=== PATIENT | female | born 1955 | race Caucasian/White ===

== ENCOUNTER 2022-12-13 16:00 | Inpatient (IN) | payer OTHER, MEDICAID ==
[~2022-12-13] VITALS: Ht 154.9 cm; Wt 69.6 kg
--- NOTE | 2022-12-13 16:03 | NUR ---
Patient to ER bed 03 to gown for evaluation. Side rails up.
[2022-12-13 16:10] VITALS: BP_SYST 150
--- NOTE | 2022-12-13 16:10 | NUR ---
PT BIBA AWAKE AND CONFUSED, AOX1. NO SOB OR DISTRESS. PT DENIES PAIN. PT BROUGHT IN FROM [facility] FOR MISSING TWO DIAYLSIS APPT. PT HAS HX OF ESKD, DM2, EPILPSEY, ANEMIA. [facility] STATED THEY SENT PT HER FOR EMERGENCY DIAYLSIS, BECAUSE HER ORIGINAL CENTER IS CLOSED.
--- NOTE | 2022-12-13 16:11 | NUR ---
MD DR AYALA AT BEDSIDE
[2022-12-13 17:16] LABS: BASOPHILS # (AUTO) 0.1 K/uL (0.0-0.2); BASOPHILS % (AUTO) 1.2 % (0.0-2.0); EOSINOPHILS # (AUTO) 0.3 K/uL (0.0-0.4); EOSINOPHILS % (AUTO) 4.1 % (0.0-4.0); HEMATOCRIT 37.2 % (36-48); HEMOGLOBIN 12.3 g/dL (12.0-16.0); LYMPHOCYTES # (AUTO) 1.5 K/uL (1.0-5.5); LYMPHOCYTES % (AUTO) 22.3 % (20.5-51.5); MEAN CORPUSCULAR HEMOGLOBIN 30 pg (27-31); MEAN CORPUSCULAR HGB CONC 33 % (32-36); MEAN CORPUSCULAR VOLUME 91 fL (79.0-98.0); MONOCYTES # (AUTO) 0.5 K/uL (0.0-1.0); NEUTROPHILS # (AUTO) 4.3 K/uL (1.8-7.7); NEUTROPHILS % (AUTO) 64.4 % (40.0-70.0); PLATELET COUNT (AUTO) 307 K/uL (130-430); RED CELL DISTRIBUTION WIDTH 18.6 % (9.0-15.0); WHITE BLOOD COUNT (AUTO) 6.6 K/uL (4.8-10.8)
[2022-12-13 18:06] LABS: ALANINE AMINOTRANSFERASE 13 U/L (12-78); ALBUMIN 3.5 g/dL (3.4-4.8); ANION GAP 12 (5-15); ASPARTATE AMINOTRANSFERASE 10 U/L (10-37); CALCIUM 9.9 mg/dL (8.4-11.0); CHLORIDE 100 mmol/L (98-107); GFR AFRICAN AMERICAN 6 mL/min (>90); GLUCOSE 201 mg/dL (70-99); TOTAL BILIRUBIN 0.3 mg/dL (0.0-1.0)
[2022-12-13 18:10] LABS: CREATININE 8.66 mg/dL (0.55-1.30)
[2022-12-13 18:29] LABS: UREA NITROGEN, BLOOD 110 mg/dL (8-21)
--- NOTE | 2022-12-13 18:29 | NUR ---
CRITICAL LAB: CREATININE 8.66 NOTIFIED RN AND
--- NOTE | 2022-12-13 18:57 | NUR ---
Admit bed requested Patient will be admitted to care of . Admitted to TELE unit. Diagnosis HYPERKALEMIA UREMIA Inpatient (Yes or No) YES Observation (Yes or No) NO Orientation concerns or request close to nursing station (Yes or No) NO Covid Status NA On vent or bipap NO Isolation requirements NO Needs a sitter NO From Home (Yes or if No enter name of facility) NO [facility] Requires Dialysis (Yes or No) YES Med Rec Completed (Yes of No) YES
[2022-12-13] MEDS ORDERED: INSULIN REGULAR, HUMAN 10 UNITS/0.1 ML, 3 ML VIAL IVP ONE (19:00)
[2022-12-13] MEDS ORDERED: CALCIUM GLUCONATE 1 GM/10 ML VIAL IVP ONE (19:00)
[2022-12-13] MEDS ORDERED: DEXTROSE 50% JECT 50 ML DISP.SYRIN IVP ONE (19:00)
--- NOTE | 2022-12-13 19:14 | NUR ---
REPORT GIVEN TO ROBERTA. PT STABLE
--- NOTE | 2022-12-13 19:30 | NUR ---
Patient is resting comfortably in bed, respirations even and unlabored, and speaking in full sentences. Denied any acute distress at this time.
[2022-12-13] MEDS ORDERED: LORazepam 2 MG/ML VIAL IM PRN (21:45)
[2022-12-13] MEDS ORDERED: LORazepam 2 MG/ML VIAL IM ONE (21:45)
--- NOTE | 2022-12-13 22:35 | NUR ---
Left a message for Tracy Taveras.
--- NOTE | 2022-12-13 22:40 | NUR ---
PICC line insertion consent obtained from Tracy Pughdavidson, daughter.
--- NOTE | 2022-12-13 22:45 | NUR ---
PICC line nurse Colten YOO at bedside for PICC line insertion.
--- NOTE | 2022-12-13 23:12 | NUR ---
Portable x-ray done at bedside.
--- NOTE | 2022-12-13 23:44 | NUR ---
Patient will be admitted to care of DR. MICHELLE. Admitted to TELEMETRY unit. Will go to room 105A. Belongings list completed. Complete and up to date summary report printed. SBAR report to be given at bedside with opportunity for questions.
[2022-12-13] MEDS ORDERED: SODIUM POLYSTYRENE SULFONATE 15 GM/60 ML UDBTL GT ONE (23:45)
[2022-12-14] MEDS ORDERED: LORazepam 2 MG/ML VIAL IVP PRN
[2022-12-14] MEDS ORDERED: DEXTROSE 50% JECT 50 ML DISP.SYRIN IVP PRN
[2022-12-14] MEDS ORDERED: cloNIDine HCL 0.1 MG TABLET PO PRN
[2022-12-14 00:11] VITALS: BP_SYST 153
--- NOTE | 2022-12-14 00:37 | NUR ---
RECEIVED PT FROM ED, NO DISTRESS NOTED, DENIES PAIN. PT ORIENTED TO SELF. O2 SAT 97% ON RA. RT CHEST MILA CATH DRSG CDI. GT CLAMPED. DOUBLE LUMEN PICC LINE TO LUE. USING PURWICK, NO SKIN INJURY NOTED. APPLIED PROPERTY INSURANCE AGENT. Addendum: 12/14/22 at 0745 by [facility], FREDO YOO 0500: GT FEEDING NOT AVAILABLE. WILL ENDORSE
[2022-12-14 05:27] LABS: BASOPHILS # (AUTO) 0.1 K/uL (0.0-0.2); BASOPHILS % (AUTO) 1.1 % (0.0-2.0); EOSINOPHILS # (AUTO) 0.2 K/uL (0.0-0.4); EOSINOPHILS % (AUTO) 2.8 % (0.0-4.0); HEMATOCRIT 36.5 % (36-48); LYMPHOCYTES # (AUTO) 1.5 K/uL (1.0-5.5); MEAN CORPUSCULAR HEMOGLOBIN 30 pg (27-31); MEAN CORPUSCULAR HGB CONC 33 % (32-36); MEAN CORPUSCULAR VOLUME 91 fL (79.0-98.0); MONOCYTES # (AUTO) 0.6 K/uL (0.0-1.0); MONOCYTES % (AUTO) 6.7 % (1.7-9.3); NEUTROPHILS # (AUTO) 6.3 K/uL (1.8-7.7); NEUTROPHILS % (AUTO) 72.4 % (40.0-70.0); PLATELET COUNT (AUTO) 316 K/uL (130-430); RED BLOOD CELL COUNT(AUTO) 4.03 MIL/uL (4.2-6.2); RED CELL DISTRIBUTION WIDTH 18.3 % (9.0-15.0); WHITE BLOOD COUNT (AUTO) 8.8 K/uL (4.8-10.8)
[2022-12-14 06:09] LABS: ALBUMIN 3.2 g/dL (3.4-4.8); CALCIUM 10.1 mg/dL (8.4-11.0); FREE T4 (FREE THYROXINE) 0.9 ng/dl (0.8-1.5); PHOSPHORUS 7.5 mg/dL (2.7-4.5); THYROID STIMULATING HORMONE 3.1 uIu/mL (0.36-3.74); TOTAL BILIRUBIN 0.5 mg/dL (0.0-1.0)
[2022-12-14 07:00] LABS: CREATININE 8.76 mg/dL (0.55-1.30)
--- NOTE | 2022-12-14 07:01 | NUR ---
CONSULTATION PAGED/CALLED Reason for Consultation: [] HYPERKALEMIA Person Who was Notified: [] HEATH Consulting Physician: [] DR LARA Foamite Mixer Specialty: [] DIE HOLDER Ordering Physician: [] DR MICHELLE
[2022-12-14 08:00] VITALS: BP_SYST 139
--- NOTE | 2022-12-14 08:00 | NUR ---
No complaints,continue with plan of care.
[2022-12-14 11:32] VITALS: BP_SYST 150
--- NOTE | 2022-12-14 13:00 | NUR ---
Referral for [place] faxed to [phone] .
--- NOTE | 2022-12-14 13:54 | NUR ---
Technology Director REGIONAL EDUCATION MANAGER faxed Pts. clinicals to [facility]
[2022-12-14 17:18] VITALS: BP_SYST 133
[2022-12-14 19:30] VITALS: BP_SYST 140
--- NOTE | 2022-12-14 19:30 | NUR ---
PM ASSESSMENT; -Pt is a/ox1-2, resting in bed comfortably. No s/s any acute distress noted. Unable to discuss poc d/t cognitive limitation, no family is available at bedside this time. All side rails padded. Seizure precaution in place. All safety measures in place. Fall precaution in place. G-tube feeding Nephro @ 30ml/hr,no residual noted. Keep HOB> 30degree entire time. Call light w/in reach, side rails x3. Cont to monitor pt.
--- NOTE | 2022-12-14 19:31 | NUR ---
tolerating gtube feedings ,no complaints,dialysis completed,continue with plan of care,report given to Yaneli YOO.
--- NOTE | 2022-12-15 01:22 | NUR ---
NOTES; PT REFUSED VITAL SIGNS THIS TIME. -Pt is resting in bed comfortably. Pt denies any chest pain,pain,sob,or any acute distress. No seizure activity noted. Seizure precaution in place. All safety measures in place. Fall precaution in place. G-tube feeding Nephro @ 30ml/hr,no residual noted,flushed with water 100ml, pt tolerated well. Keep HOB> 30degree entire time. Call light w/in reach, side rails x3. Cont to monitor pt.
--- NOTE | 2022-12-15 04:10 | NUR ---
ROUNDS; -Pt is asleep. NO s/s any acute distress noted. All safety measures in place. Call light w/in reach, bed alarmed. Cont to monitor pt.
--- NOTE | 2022-12-15 05:10 | NUR ---
NOTES; -Pt is agitating and attempting to swing arm at nurse when ergonomic specialist asked to draw blood from PICC line. Gave Ativan 1mg IVP for agitation. Will cont to monitor pt.
[2022-12-15] MEDS: INSULIN REGULAR, HUMAN 100 UNITS/ML, 3 ML VIAL (humuLIN R) SUBCUT PRN ×2 (05:45→17:19)
[2022-12-15 06:31] LABS: CALCIUM 9.7 mg/dL (8.4-11.0)
--- NOTE | 2022-12-15 06:32 | NUR ---
CLOSING NOTES; -Pt is resting in bed. NO s/s any acute distress noted. All safety measures in place. No seizure activity noted entire shift. Pt's condition stable. Call light w/in reach, bed alarmed. Will endorse to next nurse to continuity of care.
[2022-12-15 06:37] LABS: CREATININE 7.89 mg/dL (0.55-1.30)
[2022-12-15 06:38] LABS: EOSINOPHILS # (AUTO) 0.2 K/uL (0.0-0.4); EOSINOPHILS % (AUTO) 3.4 % (0.0-4.0); HEMATOCRIT 35.6 % (36-48); HEMOGLOBIN 11.8 g/dL (12.0-16.0); MEAN CORPUSCULAR HEMOGLOBIN 30 pg (27-31); MEAN CORPUSCULAR HGB CONC 33 % (32-36); MEAN CORPUSCULAR VOLUME 91 fL (79.0-98.0); MONOCYTES # (AUTO) 0.6 K/uL (0.0-1.0); MONOCYTES % (AUTO) 9.5 % (1.7-9.3); PLATELET COUNT (AUTO) 288 K/uL (130-430); RED BLOOD CELL COUNT(AUTO) 3.92 MIL/uL (4.2-6.2); RED CELL DISTRIBUTION WIDTH 18.1 % (9.0-15.0); WHITE BLOOD COUNT (AUTO) 6.4 K/uL (4.8-10.8)
--- NOTE | 2022-12-15 07:15 | NUR ---
ENDORSED TO MELDOY YOO TO NOTIFY DR. LARA REGARDING CRTICAL CREATININE 7.89 TRENDING DOWN AND PT IS ESRD AND ON HEMODIALYSIS.
[2022-12-15 07:46] LABS: NEUTROPHILS % (AUTO) 64.5 % (40.0-70.0)
[2022-12-15 07:47] LABS: LYMPHOCYTES # (AUTO) 1.4 K/uL (1.0-5.5); NEUTROPHILS # (AUTO) 4.2 K/uL (1.8-7.7)
--- NOTE | 2022-12-15 09:25 | NUR ---
Tele unit was dc'd and returned to cardiac monitor.
[2022-12-15] MEDS: QUEtiapine FUMARATE 25 MG TABLET PO SCH ×2 (10:19→22:31)
[2022-12-15 11:21] VITALS: BP_SYST 101
[2022-12-15 16:00] VITALS: BP_SYST 138
--- NOTE | 2022-12-15 18:40 | NUR ---
Note Pt resistant to any one doing VS or accu checks all shift. Pt has no HANNAH PICC all shift. GT intact and patent infusing feedings well. Dr Jones was at bedside at 0750am and aware pt resistant to VS and BS checks being done. Pt's son and daughter were at bedside at 1300 and pt asking for food, family brought in food and fed pt, tolerated diet well. Pt's son ambulated pt to restroom to void, family assisted pt back to bed. Pt was checked on q1' and PRN all shift for needs and care. Pt was maintained with safety precautions all shift. Pt next to nurses' station for close observation for needs and care. Pt has seizure pads on bed, pt tends to throw seizure pads on the floor from time to time. Call light within reach.
--- NOTE | 2022-12-15 19:30 | NUR ---
Received pt in bed. Pt awake and alert not not cooperative with v/s. No iv access since day shift. Left chest HD perma catheter Intact. Gt feeding with Nephro at 30 ml/hr. Seizure and aspiration precaution. Kept HOB elevated at least 30 deg. Refused IV insertion.
[2022-12-15 20:26] VITALS: BP_SYST 133
[2022-12-16 00:18] VITALS: BP_SYST 98
--- NOTE | 2022-12-16 05:58 | NUR ---
pt awake and oriented x self/place. Pt more cooperative this am-let us to check BS and draw am Lab. No urine out put and bm. Provided pudding per pt's request. No s/sx of aspiration. Skin dry and intact. BS-188. Tolerated GT feeding with Nephro at 30 ml and given H2O flush 100 ml every 8 hr. No residual.
[2022-12-16 07:00] VITALS: BP_SYST 125
[2022-12-16 07:03] LABS: BASOPHILS # (AUTO) 0.1 K/uL (0.0-0.2); BASOPHILS % (AUTO) 1.4 % (0.0-2.0); EOSINOPHILS # (AUTO) 0.2 K/uL (0.0-0.4); EOSINOPHILS % (AUTO) 3.5 % (0.0-4.0); HEMATOCRIT 35.4 % (36-48); HEMOGLOBIN 11.8 g/dL (12.0-16.0); LYMPHOCYTES # (AUTO) 1.8 K/uL (1.0-5.5); LYMPHOCYTES % (AUTO) 28.6 % (20.5-51.5); MEAN CORPUSCULAR HEMOGLOBIN 30 pg (27-31); MEAN CORPUSCULAR HGB CONC 33 % (32-36); MEAN CORPUSCULAR VOLUME 91 fL (79.0-98.0); MONOCYTES # (AUTO) 0.7 K/uL (0.0-1.0); MONOCYTES % (AUTO) 11.1 % (1.7-9.3); NEUTROPHILS # (AUTO) 3.6 K/uL (1.8-7.7); NEUTROPHILS % (AUTO) 55.4 % (40.0-70.0); PLATELET COUNT (AUTO) 249 K/uL (130-430); RED BLOOD CELL COUNT(AUTO) 3.89 MIL/uL (4.2-6.2); RED CELL DISTRIBUTION WIDTH 18.1 % (9.0-15.0); WHITE BLOOD COUNT (AUTO) 6.4 K/uL (4.8-10.8)
[2022-12-16 07:35] LABS: CREATININE 9.23 mg/dL (0.55-1.30)
[2022-12-16] MEDS: QUEtiapine FUMARATE 25 MG TABLET PO SCH ×2 (08:13→20:59)
[2022-12-16 12:00] VITALS: BP_SYST 117
--- NOTE | 2022-12-16 14:51 | NUR ---
Dietitian Recommendations * Increase Nepro @ 35 mL/hr (goal rate) via GT: - Provides: 1512 kcals, 68 g PRO, and 911 mL of total volume. - Meets: 95% of lower est. kcal needs and 106% of lower est. PRO needs. * Defer est. fluid needs to MD d/t ESRD on HD. * Consider ST swal. eval. for safety of possible diet advancement. Submitted for FABIO Jett by Marii De Leon, MPH, RD Please refer to RD Assessment for further details. Thanks!
[2022-12-16 16:12] VITALS: BP_SYST 121
[2022-12-16] MEDS: INSULIN REGULAR, HUMAN 100 UNITS/ML, 3 ML VIAL (humuLIN R) SUBCUT PRN (18:08)
--- NOTE | 2022-12-16 19:45 | NUR ---
REFUSING IV insertion DR MIGUEL ANGEL ALONZO is aware
--- NOTE | 2022-12-16 20:02 | NUR ---
Patient non compliant with some of care more receptive to interventions after dialysis. Not quite as refused. Plan of care to continue with monitoring labs HD psycho social.
--- NOTE | 2022-12-16 20:11 | NUR ---
Patient not as confused after dialysis but still would not allow new IV to be placed. Attempted several times with out success. Plan will continue to offer hoping patient may be compliant
--- NOTE | 2022-12-16 20:44 | NUR ---
HEMODIALYSIS orders printed and given to production supervisor HD , for AM .
[2022-12-16 21:00] VITALS: BP_SYST 135
--- NOTE | 2022-12-16 22:35 | NUR ---
Patient awake alert assist out of bed to BSC FALL RISK MEASURES implemented no SOB noted 02 SAT 96 %
--- NOTE | 2022-12-16 23:44 | NUR ---
HOURLY ROUNDING patient awake is verbally responsive call gill given to PT bed alarm is ON .
[2022-12-17 00:13] VITALS: BP_SYST 98
--- NOTE | 2022-12-17 01:35 | NUR ---
Hourly Rounding patient awake on and off assist for BSC back to bed tolerated BED ALARM / ON .
[2022-12-17 06:00] LABS: CALCIUM 9.9 mg/dL (8.4-11.0); CREATININE 7.42 mg/dL (0.55-1.30)
[2022-12-17] MEDS: QUEtiapine FUMARATE 25 MG TABLET PO SCH (09:24)
--- NOTE | 2022-12-17 11:15 | NUR ---
CM met with patient at bedside. receiving dialysis at this time. Patient is ok to go back to [facility]. patient verbalized that she just wants to be with her family.
[2022-12-17 11:32] VITALS: BP_SYST 123
--- NOTE | 2022-12-17 11:45 | NUR ---
Mud Analysis Well Logging Operator re: social service manager referral Telephone call made to the patient's daughter, Tracy, to discuss the ongoing issues regarding the patient's noncompliance with dialysis. Per Tracy, the patient has been residing at [facility] for the last 4 and a 1/2 months. The patient Was previously residing with her son in a local motel. According to the daughter, the patient wants to have dialysis in house and does not want to go outpatient for dialysis services. She states the patient will attend dialysis on Saturdays when her or the son are at bedside, however in the , she will not attend. She states recently, both and nurses have spoken to them [her and the son] about hospice services, however the son is not in agreement to hospice services. The daughter is aware that the patient frequently refuses hospice services, which is why the has discussed hospice services with her. I advised the daughter that the patient is ready to discharge from the hospital and return back to [facility] once the patient is cleared by nephrology. The daughter is in agreement with the patient returning back to [facility]. I advised her that I would reach out to [facility] to get the patient transferred back. I did call the son, Atilio, to discuss the patient with his as well, however there was no answer. His voicemail is full. Per daughter, the son's voicemail is full and he is unable to receive calls in the day. Telephone call made to Norma at [facility]. I advised her that the patient is ready to return back and a bed is needed. A clinical packet has been sent over, which she advised she would review and reply back with the bed assignment. Upon receiving the bed assignment for the patient, [facility] will be arranged. [facility]: [phone] [facility]: [phone]
--- NOTE | 2022-12-17 12:01 | NUR ---
PATIENT UNABLE TO PARTICIPATE IN PT TREATMENT TODAY D/T RECEIVING HD. WILL TRY AGAIN TOMORROW.
--- NOTE | 2022-12-17 12:27 | NUR ---
paged dr aranda for dc order as per hospice case manager
--- NOTE | 2022-12-17 12:30 | NUR ---
DIALYSIS CATHETER OCCLUDED ORDER FOR ACTIVASE OBTAINED FROM DR. ACEVEDO,
--- NOTE | 2022-12-17 12:40 | NUR ---
CM received notification from credit charge authorizer that patient HD catheter malfunction and will need TPA. Angeli from [facility] updated. updated clinicals were sent to [facility]
--- NOTE | 2022-12-17 12:46 | NUR ---
BLOOD SUGAR 163, PATIENT REFUSING INSULIN A THIS TIME
[2022-12-17] MEDS ORDERED: ALTEPLASE 2 MG VIAL MC ONE (13:00)
--- NOTE | 2022-12-17 13:41 | NUR ---
Per Kelly YOO CM, the patient's dialysis treatment at bedside has a delay, therefor dialysis has not been completed at this time. Received call from Norma at [facility]. The patient will return back to [facility] and will go to room 211. Norma advised of delay. [facility] called and arranged for a p/u tonight at 9p, assuming the patient is able to discharge today. [facility] does not do will-call for transports. Per Norma, [facility] has a RN on duty and is able to accept the patient at that hour. Transportation arranged with C[facility]. FREDO Leija advised of the discharge arrangements for the patient, but also advised that should the patient not be able to discharge tonight, then transport should be called and canceled. The clinical packet taken to the unit for transport. [facility]: [phone] [facility]: [phone] Transportation confirmation #: [id number]
[2022-12-17 16:32] VITALS: BP_SYST 126
--- NOTE | 2022-12-17 16:49 | NUR ---
CM received phone call from charge auditor that Dr Hansen [facility] will notify SNF. transportation in place.
--- NOTE | 2022-12-17 16:54 | NUR ---
Dialysis confirmation made with [facility] in [place]. Per lorna, the patient is on schedule for T,Th, S from 9:30a - 1:30p. I advised Lita that the patient has been at [facility] and will discharge tonight returning back to [facility]. Per Lita, they will expect to see the patient tomorrow. Telephone call made to [facility] to resume transportation. The patient has transportation arranged for a p/u tomorrow at 8:40a from to . [facility]: [phone] [facility]: [phone] confirmation #: [id number]
--- NOTE | 2022-12-17 19:45 | NUR ---
opening note Received SBAR report from, Liss YOO. She endorsed that patient will discharge and ambulance is here waiting for her to give report. She has not been able to call report to [facility]. Liss gave report to the EMT ([facility]) and to me simultaneously. Patient resting in bed, sitting up. No distress and nonlabored breathing on room air, GT feeding is running, she has no IV access. HD access is on Left chest. Safety precautions in place.
--- NOTE | 2022-12-17 20:11 | NUR ---
Report to [facility] Called endorsed report to Karyn R/NKatherine ([phone]). Discharge info not complete will work on MST instructions and inventory.
[2022-12-17 20:13] VITALS: BP_SYST 130
--- NOTE | 2022-12-17 20:15 | NUR ---
notified daughter / transfer called and s/w daughter Tracy Pughdarlynmagdy; informed mother is transferrin to [facility] and ambulance is here to take her.
--- NOTE | 2022-12-17 20:19 | NUR ---
completed/printed discharge instructions
--- NOTE | 2022-12-17 20:20 | NUR ---
PT TRANSFERRED Report given to Karyn at [facility]. Transfer packet with Transfer Orders and Medication Reconciliation form given to JEANNE Gongora ([facility] ambulance). Exitcare provided. [facility] ID band removed, replaced plain ID band with pt's name and . GT feeding was clamped. She did not have IV access. She did not have belongings. Patient left floor via gurney escorted by EMT in no distress.
--- NOTE | 2022-12-17 20:45 | NUR ---
opening note Received SBAR report from, Liss YOO. She endorsed that patient will discharge and ambulance is here waiting for her to give report. She has not been able to call report to [facility]. Liss gave report to the EMT ([facility]) and to me simultaneously. Patient resting in bed, sitting up. No distress and nonlabored breathing on room air, GT feeding is running, she has no IV access. HD access is on Left chest. Safety precautions in place. Addendum: 12/18/22 at 0131 by Tania Liao RN incorrect time
== END 2022-12-17 20:10 | DRG 682 ==
LOC: SED 16:00 → STU 18:50 → SMU 12-15 08:10
PROVIDERS: ADMIT Internal Medicine; ATTEND Internal Medicine
PROC: 5A1D70Z Performance of Urinary Filtration, Intermittent, Less than 6 Hours Per Day (ICD-10-PCS; principal; 2022-12-14)
PROC: 5A1D70Z Performance of Urinary Filtration, Intermittent, Less than 6 Hours Per Day (ICD-10-PCS; 2022-12-15)
PROC: 5A1D70Z Performance of Urinary Filtration, Intermittent, Less than 6 Hours Per Day (ICD-10-PCS; 2022-12-16)
PROC: 5A1D70Z Performance of Urinary Filtration, Intermittent, Less than 6 Hours Per Day (ICD-10-PCS; 2022-12-17)
DX: I12.0 Hypertensive chronic kidney disease with stage 5 chronic kidney disease or end stage renal disease (principal); G93.41 Metabolic encephalopathy; N18.6 End stage renal disease; E44.1 Mild protein-calorie malnutrition; F03.918 Unspecified dementia, unspecified severity, with other behavioral disturbance; E87.5 Hyperkalemia; G40.909 Epilepsy, unspecified, not intractable, without status epilepticus; R13.10 Dysphagia, unspecified; Z93.1 Gastrostomy status; Z68.29 Body mass index [BMI] 29.0-29.9, adult
CPT/HCPCS: 36415; 70450-TC; 71045; 76376; 80048; 80053; 82009; 83037; 83605; 84100; 84439; 84443; 84484; 85025; 85610-TC; 85730-TC; 90935; 90937; 93005; 97110-GP; 97112-GP; 97116-GP; 97530-GP; 99291; G0378; J0610; J1815; J2060; J2997

== ENCOUNTER 2023-01-10 20:42 | Inpatient (IN) | payer OTHER, MEDICAID ==
[~2023-01-10] VITALS: Ht 157.5 cm; Wt 73.5 kg
--- NOTE | 2023-01-10 20:45 | NUR ---
PATIENT BIBA FROM [facility] FOR MALFUNCTION OF AV SHUNT AWAITING FOR EDP FOR INITIAL ASSESSMENT. PATIENT IN ROOM 2 ON CARDIC MONITOR, WILL CONTINUE TO MONITOR.
[2023-01-10 20:47] VITALS: BP_SYST 152
--- NOTE | 2023-01-10 21:14 | NUR ---
X-RAY IN PROGRESS.
--- NOTE | 2023-01-10 21:28 | NUR ---
PATIENT ASSISTED TO BEDPAN, REMAIS IN BED ON FASHION STYLING INTERN, WILL CONTINUE TO MONITOR.
[2023-01-10 21:48] LABS: BASOPHILS % (AUTO) 0.6 % (0.0-2.0); EOSINOPHILS # (AUTO) 0.2 K/uL (0.0-0.4); EOSINOPHILS % (AUTO) 3.4 % (0.0-4.0); HEMATOCRIT 34.1 % (36-48); HEMOGLOBIN 11.3 g/dL (12.0-16.0); LYMPHOCYTES # (AUTO) 1.8 K/uL (1.0-5.5); LYMPHOCYTES % (AUTO) 29.7 % (20.5-51.5); MEAN CORPUSCULAR HEMOGLOBIN 31 pg (27-31); MEAN CORPUSCULAR HGB CONC 33 % (32-36); MEAN CORPUSCULAR VOLUME 94 fL (79.0-98.0); MONOCYTES # (AUTO) 0.6 K/uL (0.0-1.0); MONOCYTES % (AUTO) 9.2 % (1.7-9.3); NEUTROPHILS # (AUTO) 3.5 K/uL (1.8-7.7); NEUTROPHILS % (AUTO) 57.1 % (40.0-70.0); PLATELET COUNT (AUTO) 233 K/uL (130-430); RED BLOOD CELL COUNT(AUTO) 3.62 MIL/uL (4.2-6.2); RED CELL DISTRIBUTION WIDTH 17.2 % (9.0-15.0); WHITE BLOOD COUNT (AUTO) 6.1 K/uL (4.8-10.8)
[2023-01-10 22:08] LABS: ALBUMIN 3.4 g/dL (3.4-4.8); CALCIUM 8.9 mg/dL (8.4-11.0); TOTAL BILIRUBIN 0.3 mg/dL (0.0-1.0)
[2023-01-10 22:21] LABS: CREATININE 10.06 mg/dL (0.55-1.30)
[2023-01-10] MEDS ORDERED: INSULIN REGULAR, HUMAN 10 UNITS/0.1 ML, 3 ML VIAL IVP ONE (22:45)
[2023-01-10] MEDS ORDERED: ALBUTEROL SULFATE 0.083% 2.5 MG/3 ML VIAL.NEB INH ONE (22:45)
[2023-01-10] MEDS ORDERED: CALCIUM CHLORIDE 1 GM in NS 100 ML IV ONE (22:45)
[2023-01-10] MEDS ORDERED: SODIUM POLYSTYRENE SULFONATE 15 GM/60 ML UDBTL PO ONE (22:45)
[2023-01-10] MEDS ORDERED: DEXTROSE 50% JECT 50 ML DISP.SYRIN IVP ONE (22:45)
--- NOTE | 2023-01-10 22:46 | NUR ---
Admit bed requested Patient will be admitted to care of . Admitted to TELEMETRY unit. Diagnosis ACUTE RENAL FAILURE Inpatient (Yes or No) Y Observation (Yes or No) N Orientation concerns or request close to nursing station (Yes or No) Y Covid Status N/A On vent or bipap N Isolation requirements N Needs a sitter N From Home (Yes or if No enter name of facility) [facility] Requires Dialysis (Yes or No) Y Med Rec Completed (Yes of YY
[2023-01-10] MEDS ORDERED: IPRATROPIUM/ALBUTEROL SULFATE 3 ML AMPUL.NEB (DUONEB) INH PRN (23:00)
[2023-01-10] MEDS ORDERED: ZOLPIDEM TARTRATE 5 MG TABLET PO PRN (23:00)
[2023-01-10] MEDS ORDERED: POTASSIUM CHLORIDE 20 MEQ TAB.PRT.SR PO PRN (23:00)
[2023-01-10] MEDS ORDERED: MUPIROCIN 2% TOPICAL OINTMENT 22 GM NS PRN (23:00)
[2023-01-10] MEDS ORDERED: MORPHINE 2 MG/ML INJ. SYRINGE IVP PRN ×2 (23:00)
[2023-01-10] MEDS ORDERED: NALOXONE HCL 0.4 MG/ML AMP (NARCAN) IVP PRN ×2 (23:00)
[2023-01-10] MEDS ORDERED: ONDANSETRON HCL 4 MG/2 ML VIAL IVP PRN (23:00)
[2023-01-10] MEDS ORDERED: ACETAMINOPHEN 325 MG TABLET PO PRN (23:00)
[2023-01-10] MEDS ORDERED: LORazepam 2 MG/ML VIAL IVP PRN (23:00)
[2023-01-10] MEDS ORDERED: DOCUSATE SODIUM 100 MG CAPSULE PO PRN (23:00)
[2023-01-10] MEDS ORDERED: MAGNESIUM SULFATE 50 ML IV PRN (23:00)
--- NOTE | 2023-01-10 23:04 | NUR ---
FAMILY AT BEDSIDE, PATIENT IS NOT COORPERATIVE.
[2023-01-10] MEDS ORDERED: CALCIUM CHLORIDE 1 GM/10 ML DISP.SYRIN (14 mEq Ca++/SYR) ONE (23:36)
[2023-01-11] VITALS (7 sets, daily range): BP systolic 136–169
--- NOTE | 2023-01-11 00:13 | NUR ---
Patient will be admitted to care of [facility]. Admitted to tele unit. Will go to room 111 A. Belongings list completed. Complete and up to date summary report printed. SBAR report to be given at bedside with opportunity for questions.
--- NOTE | 2023-01-11 00:19 | NUR ---
REPORT GIVEN TO TINA GARRIDO.
--- NOTE | 2023-01-11 02:53 | NUR ---
NOTES; CALLED [facility] AND SPOKE WITH CHARLEE NURSE REGARDING TYPE OF G-TUBE FEEDING AND RATE THAT PT IS GETTING. SHE STATED, " PT IS ON NEPHRO 1.8 @ 35ML/HR MOST RECENTLY BECAUSE G-TUBE FEEDING STOPPED 2 WKS AGO AND SHE EATS ORALLY. PT WAS VACCINATED WITH INFLUENZA AND COVID IMMUNIZATIONS.
--- NOTE | 2023-01-11 04:00 | NUR ---
NOTES; PT REFUSED G-TUBE FEEDING NEPHRO 1.8 -Pt stated, "Oh no! Yucky, I don't want the mush!" Pt stated that she eats by mouth. will notify md regarding if pt can eat orally.
--- NOTE | 2023-01-11 05:23 | NUR ---
CONSULTATION PAGED REASON FOR CONSULTATION: DIALYSIS ACCESS PLACEMENT WAS CONSULT CALLED? Y PERSON WHO WAS NOTIFIED: CONSULTING PHYSICIAN: NICOLE BRAND MARKETING MANAGER SPECIALTY: MIXER HELPER PHONE NUMBER: [phone] REQUESTING PHYSICIAN: Sandy LA
--- NOTE | 2023-01-11 05:24 | NUR ---
CONSULTATION PAGED REASON FOR CONSULTATION: ESRD WAS CONSULT CALLED? Y PERSON WHO WAS NOTIFIED: LIZETTE CONSULTING PHYSICIAN: DR. CALVIN PICKETT COVERING YARN REWINDER SPECIALTY: NEPHRO YARN REWINDER PHONE NUMBER: [phone] REQUESTING PHYSICIAN: Sandy LA
--- NOTE | 2023-01-11 05:26 | NUR ---
NOTES; Pablo MARRERO CALLED AND ASKED WHAT TYPE OF HEMODIALYSIS WAS MALFXN. INFORMED HIM THAT IT IS LEFT TUNNEL SUBCLAVIAN CATHETER HEMODIALYSIS. STATED," OKAY." NO FURTHER ORDER.
[2023-01-11 05:40] LABS: BASOPHILS # (AUTO) 0.1 K/uL (0.0-0.2); EOSINOPHILS # (AUTO) 0.1 K/uL (0.0-0.4); EOSINOPHILS % (AUTO) 0.8 % (0.0-4.0); HEMATOCRIT 33.1 % (36-48); HEMOGLOBIN 10.8 g/dL (12.0-16.0); LYMPHOCYTES # (AUTO) 1.1 K/uL (1.0-5.5); MEAN CORPUSCULAR HEMOGLOBIN 31 pg (27-31); MEAN CORPUSCULAR HGB CONC 33 % (32-36); MEAN CORPUSCULAR VOLUME 94 fL (79.0-98.0); MONOCYTES # (AUTO) 0.5 K/uL (0.0-1.0); MONOCYTES % (AUTO) 7.3 % (1.7-9.3); NEUTROPHILS % (AUTO) 73.9 % (40.0-70.0); PLATELET COUNT (AUTO) 209 K/uL (130-430); RED BLOOD CELL COUNT(AUTO) 3.53 MIL/uL (4.2-6.2); RED CELL DISTRIBUTION WIDTH 17.3 % (9.0-15.0); WHITE BLOOD COUNT (AUTO) 6.7 K/uL (4.8-10.8)
[2023-01-11] MEDS: INSULIN REGULAR, HUMAN 100 UNITS/ML, 3 ML VIAL (humuLIN R) SUBCUT PRN ×2 (06:00→20:44)
[2023-01-11 06:26] LABS: CALCIUM 9.1 mg/dL (8.4-11.0)
--- NOTE | 2023-01-11 06:26 | NUR ---
CLOSING NOTES; -Pt is resting in bed comfortably. NO s/s any acute distress noted. Pt's condition stable. will endorse to next nurse to continuity of care.
[2023-01-11 06:29] LABS: CREATININE 10.41 mg/dL (0.55-1.30)
--- NOTE | 2023-01-11 06:40 | NUR ---
NOTES; CALLED Clarice HAAS REGARDING CRITICAL LAB ( IVZ=996 AND CREATININE=10.41) AND TO ASK FOR DIET PO, PT REFUSED G-TUBE FEEDING. WAITING FOR MD TO RETURN CALLBACK.
--- NOTE | 2023-01-11 07:03 | NUR ---
NOTES; DR. LARA INFORMED AND AWARE REGARDING CRITICAL LAB CHS=569 AND CREATINE=10.41, INFORMED MD THAT LEFT TUNNEL CATHETER OF SUBCLAVIAN MALFXN. STATED," I WILL HEMODIALYSIS NURSE TO DIALYSIS PATIENT."
--- NOTE | 2023-01-11 07:07 | NUR ---
NOTES; NOTIFIED DR. LA REGARDING CRITICAL LAB HGI=512 AND CREATINE=10.41, AND DR. LARA WAS INFORMED ALREADY AT NURSES' STATION AND TOLD DR. LA THAT DR. LARA WAS AWARED OF LEFT TUNNEL CATHETER OF SUBCLAVIAN MALFXN AND HE WILL ASK HEMODIALYSIS NURSE TO DIALYZIS PATIENT."
--- NOTE | 2023-01-11 07:30 | NUR ---
MORNING ROUNDS: PATIENT RESTING DURING ROUNDS. CALL LIGHT WITH IN REACH. BED LOCKED AT LOWEST POSITION. LEFT SUBCLAVIAN HD ACCESS,DRESSING CLEAN AND DRY.SAFETY MEASURES OBSERVED.NO ACUTE DISTRESS.
[2023-01-11] MEDS ORDERED: METOPROLOL TARTRATE 25 MG TABLET PO ONE (09:45)
[2023-01-11] MEDS ORDERED: ALTEPLASE 2 MG VIAL MC ONE ×2 (09:45→15:00)
[2023-01-11] MEDS ORDERED: ACET325T PO (11:37)
[2023-01-11] MEDS ORDERED: GLUC1VIA14 IM (11:37)
[2023-01-11] MEDS ORDERED: SER25 PO (11:37)
[2023-01-11] MEDS ORDERED: CLON0.1T PO (11:37)
[2023-01-11] MEDS ORDERED: INSU100V7 SUBCUT (11:37)
[2023-01-11] MEDS ORDERED: DEXT50DI5 IV (11:37)
--- NOTE | 2023-01-11 12:14 | NUR ---
BLOOD SUGAR REFUSED: PATIENT REFUSED BLOOD SUGAR TAKEN.
--- NOTE | 2023-01-11 13:09 | NUR ---
Surgeon Called: Spoke with Dr. Rose ,will not be available to do the hd access from today till Saturday. Will inform Md if the tunnel will not work after cath flow activase was put in thru the tunnel by dialysis nurse today.
--- NOTE | 2023-01-11 13:58 | NUR ---
CONSULTATION PAGED/CALLED Reason for Consultation: [] PSYCHOSIS Person Who was Notified: [] DADA ( [facility]) Consulting Physician: [] MARILU LARA Environmental Technical Officer Specialty: [] PSYCH Ordering Physician: [] DR LA
--- NOTE | 2023-01-11 14:00 | NUR ---
HEMODIALYSIS: HEMODIALYSIS STARTED. CATH FLOW GIVEN THRU THE HD ACCESS BY JAYADIALYSIS NURSE.
--- NOTE | 2023-01-11 16:30 | NUR ---
BLOOD SUGAR: BLOOD SUGAR CHECKED. NO INSULIN COVERAGE GIVEN PER SLIDING SCALE.
--- NOTE | 2023-01-11 17:00 | NUR ---
HD DONE: HD DONE 2 LITERS OUT. CATH FLOW GIVEN THRU HER ACCESS AFTER BY DIALYSIS NURSE JESSIE.
--- NOTE | 2023-01-11 19:00 | NUR ---
END OF SHIFT: ENDORSED TO NIGHT NURSE ,PATIENT IN STABLE CONDITION. LEFT SUBCLAVIAN HD ACCESS WORKING.
--- NOTE | 2023-01-11 19:40 | NUR ---
PM ASSESSMENT; -Patient is awake, alert, oriented x1,resting in bed. Pt is uncooperative and noncompliance. NO s/s any acute distress noted. PEG tube clamped. Side rails x3,bed alarmed. Fall precaution in place. Bed alarmed. BSC with assistance. Call light within reach. Cont to monitor pt.
[2023-01-11] MEDS: METOPROLOL TARTRATE 25 MG TABLET PO SCH (20:41)
--- NOTE | 2023-01-11 22:47 | NUR ---
ROUNDS; -Pt is asleep. NO s/s any acute distress noted. All safety measures in place. call light w/in reach. cont to monitor pt.
[2023-01-12 00:56] VITALS: BP_SYST 135
--- NOTE | 2023-01-12 03:26 | NUR ---
ROUNDS; -Pt is asleep. NO s/s any acute distress noted. Pt's condition stable. A monitor shows SB 48-49 bpm. All safety measures in place. call light w/in reach. cont to monitor pt.
--- NOTE | 2023-01-12 05:56 | NUR ---
NOTES; BLOOD BUVCA=062, NO SSI COVERAGE.
--- NOTE | 2023-01-12 06:31 | NUR ---
CLOSING NOTES; -Pt is resting in bed comfortably. NO s/s any acute distress noted. Pt's condition stable. will endorse to next nurse to continuity of care.
[2023-01-12 07:30] VITALS: BP_SYST 128
[2023-01-12 08:18] LABS: BASOPHILS # (AUTO) 0.1 K/uL (0.0-0.2); BASOPHILS % (AUTO) 1.2 % (0.0-2.0); EOSINOPHILS # (AUTO) 0.2 K/uL (0.0-0.4); EOSINOPHILS % (AUTO) 4.4 % (0.0-4.0); HEMOGLOBIN 11.6 g/dL (12.0-16.0); LYMPHOCYTES # (AUTO) 1.4 K/uL (1.0-5.5); LYMPHOCYTES % (AUTO) 29.2 % (20.5-51.5); MEAN CORPUSCULAR HEMOGLOBIN 31 pg (27-31); MEAN CORPUSCULAR HGB CONC 33 % (32-36); MEAN CORPUSCULAR VOLUME 93 fL (79.0-98.0); MONOCYTES # (AUTO) 0.5 K/uL (0.0-1.0); MONOCYTES % (AUTO) 9.6 % (1.7-9.3); NEUTROPHILS # (AUTO) 2.7 K/uL (1.8-7.7); NEUTROPHILS % (AUTO) 55.6 % (40.0-70.0); PLATELET COUNT (AUTO) 214 K/uL (130-430); RED BLOOD CELL COUNT(AUTO) 3.75 MIL/uL (4.2-6.2); WHITE BLOOD COUNT (AUTO) 4.9 K/uL (4.8-10.8)
[2023-01-12 08:29] LABS: CALCIUM 8.7 mg/dL (8.4-11.0); CREATININE 6.14 mg/dL (0.55-1.30)
[2023-01-12] MEDS: METOPROLOL TARTRATE 25 MG TABLET PO SCH ×2 (09:00→21:21)
[2023-01-12 11:19] VITALS: BP_SYST 131
[2023-01-12 15:16] VITALS: BP_SYST 146
[2023-01-12 16:00] VITALS: BP_SYST 136
[2023-01-12 20:00] VITALS: BP_SYST 155
[2023-01-13] VITALS: BP_SYST 172
[2023-01-13] MEDS: cloNIDine HCL 0.1 MG TABLET PO PRN ×2 (00:09→16:37)
--- NOTE | 2023-01-13 06:40 | NUR ---
Closing notes Pt awake, lab draw at bedside. BS checked 121. L. subclavian HD catheter dressing C/D/I. Call light within reach. Bed low, locked, siderail up x2. Seizure precaution. To endorse to AM nurse.
[2023-01-13 07:03] LABS: BASOPHILS # (AUTO) 0.1 K/uL (0.0-0.2); BASOPHILS % (AUTO) 1.3 % (0.0-2.0); EOSINOPHILS # (AUTO) 0.3 K/uL (0.0-0.4); EOSINOPHILS % (AUTO) 4.8 % (0.0-4.0); HEMATOCRIT 33.4 % (36-48); LYMPHOCYTES % (AUTO) 31.3 % (20.5-51.5); MEAN CORPUSCULAR HEMOGLOBIN 31 pg (27-31); MEAN CORPUSCULAR HGB CONC 33 % (32-36); MEAN CORPUSCULAR VOLUME 94 fL (79.0-98.0); MONOCYTES # (AUTO) 0.6 K/uL (0.0-1.0); NEUTROPHILS # (AUTO) 3.4 K/uL (1.8-7.7); NEUTROPHILS % (AUTO) 53.6 % (40.0-70.0); PLATELET COUNT (AUTO) 201 K/uL (130-430); RED BLOOD CELL COUNT(AUTO) 3.54 MIL/uL (4.2-6.2); RED CELL DISTRIBUTION WIDTH 16.6 % (9.0-15.0); WHITE BLOOD COUNT (AUTO) 6.4 K/uL (4.8-10.8)
--- NOTE | 2023-01-13 07:05 | NUR ---
OPENING NOTES PATIENT EATING BREAKFAST. BREATHING UNLABORED ON RA SA02 100%. NO PAIN, NO DISTRESS, NO SOB REPORTED. EDUCATE PATIENT TO USE CALL LIGHT. CALL LIGHT PLACED WITHIN REACH. BED LOCKED IN LOWEST POSITION. PROVIDE COMFORT MEASURES. SAFETY PRECAUTIONS IN PLACE. WILL CONTINUE WITH PLAN OF CARE.
[2023-01-13 07:26] LABS: CALCIUM 9.2 mg/dL (8.4-11.0); CREATININE 7.5 mg/dL (0.55-1.30)
[2023-01-13 07:58] VITALS: BP_SYST 188
[2023-01-13] MEDS: METOPROLOL TARTRATE 25 MG TABLET PO SCH ×2 (08:46→21:00)
[2023-01-13 11:27] VITALS: BP_SYST 142
--- NOTE | 2023-01-13 11:38 | NUR ---
MADE ANOTHER TRY TO CALL TELEPSYCH WITH MARILU LARA WAS DONE. CONNECTION WAS SUCCESSFUL AND DR YEE MICHEL IS TALKING TO THE PATIENT NOW.
--- NOTE | 2023-01-13 12:05 | NUR ---
ROUNDING NOTES PATIENT EATING LUNCH, BREATHING UNLABORED ON RA. NO PAIN, NO DISTRESS, NO SOB NOTED. ALL NEED MET AT THIS TIME. BED ALARM WITHIN REACH. BED IS LOCKED IN LOWEST POSITION. WILL CONTINUE WITH PLAN OF CARE.
[2023-01-13 15:32] VITALS: BP_SYST 174
--- NOTE | 2023-01-13 16:49 | NUR ---
ROUNDING NOTES PATIENT RESTING, BREATHING UNLABORED ON RA. NO PAIN, NO DISTRESS, NO SOB NOTED. ALL NEED MET AT THIS TIME. BED ALARM WITHIN REACH. BED IS LOCKED IN LOWEST POSITION. WILL CONTINUE WITH PLAN OF CARE.
--- NOTE | 2023-01-13 18:44 | NUR ---
CLOSING NOTES PATIENT RESTING, BREATHING UNLABORED ON RA. NO PAIN, NO DISTRESS, NO SOB NOTED. ALL NEED MET AT THIS TIME. BED ALARM WITHIN REACH. BED IS LOCKED IN LOWEST POSITION. WILL ENDORSE TO WEB SITE DEVELOPER NURSE.
[2023-01-13 20:10] VITALS: BP_SYST 138
--- NOTE | 2023-01-13 20:10 | NUR ---
Opening notes Pt asleep, easily awakens, VSS. No s/s distress noted. L. subclavian chey cath dressing C/D/I. GT clamped. Pt refused R. FA to be flushed. Call light within reach. Bed low, locked, siderails up x2. To monitor.
[2023-01-13] MEDS: INSULIN REGULAR, HUMAN 100 UNITS/ML, 3 ML VIAL (humuLIN R) SUBCUT PRN (21:17)
[2023-01-14 00:51] VITALS: BP_SYST 114
[2023-01-14 07:24] LABS: BASOPHILS # (AUTO) 0.1 K/uL (0.0-0.2); BASOPHILS % (AUTO) 1.1 % (0.0-2.0); EOSINOPHILS # (AUTO) 0.3 K/uL (0.0-0.4); EOSINOPHILS % (AUTO) 4.5 % (0.0-4.0); HEMATOCRIT 35.2 % (36-48); HEMOGLOBIN 11.5 g/dL (12.0-16.0); LYMPHOCYTES # (AUTO) 2.3 K/uL (1.0-5.5); LYMPHOCYTES % (AUTO) 30.4 % (20.5-51.5); MEAN CORPUSCULAR HEMOGLOBIN 31 pg (27-31); MEAN CORPUSCULAR HGB CONC 33 % (32-36); MEAN CORPUSCULAR VOLUME 95 fL (79.0-98.0); MONOCYTES # (AUTO) 0.5 K/uL (0.0-1.0); MONOCYTES % (AUTO) 6.5 % (1.7-9.3); NEUTROPHILS # (AUTO) 4.3 K/uL (1.8-7.7); NEUTROPHILS % (AUTO) 57.5 % (40.0-70.0); PLATELET COUNT (AUTO) 193 K/uL (130-430); RED CELL DISTRIBUTION WIDTH 16.1 % (9.0-15.0); WHITE BLOOD COUNT (AUTO) 7.5 K/uL (4.8-10.8)
--- NOTE | 2023-01-14 07:45 | NUR ---
Opening Nurse Notes: Patient laying in bed, A/O x 4, Thai speaking. Patient breathing even and unlabored on room air. Patient has no pain, no distress, no SOB. Patient is on a Renal/CCHO diet. Patient has RFA 22g SL. Bed is locked in lowest position. Call light within reach, all needs met, will continue with plan of care.
[2023-01-14 07:49] LABS: CREATININE 8.56 mg/dL (0.55-1.30)
[2023-01-14 08:05] VITALS: BP_SYST 139
--- NOTE | 2023-01-14 08:10 | NUR ---
Critical Lab Value Nurse Notes: 07:49 Dennis called from lab and reported Creatinine at 8.56 08:08 Dr. Hernandez paged to report value. Awaiting call back and/or further instructions. Addendum: 01/14/23 at 1038 by Mac Rosales LVN 08:30 Dr. Hernandez was onsite here int [facility]. Critical lab values were provided and doctor will review chart shortly.
[2023-01-14] MEDS: METOPROLOL TARTRATE 25 MG TABLET PO SCH (10:12)
--- NOTE | 2023-01-14 10:34 | NUR ---
MADE PACKET FOR MRS GUIDO SENT TO [facility] WAITING TO HEAR BACK WITH ROOM NUMBER
[2023-01-14] MEDS ORDERED: HEPARIN SODIUM,PORCINE 5,000 UNITS/ML VIAL MC ONE (11:00)
[2023-01-14 11:26] VITALS: BP_SYST 135
--- NOTE | 2023-01-14 12:00 | NUR ---
Afternoon Nurse Notes: Patient stable, breathing even and unlabored on room air. NO pain, no distress, no SOB. Bed is locked in lowest position. Call light within reach, all needs met, dialysis nurse working on patient now. Gave 10,000 units Heparin to dialysis nurse.
--- NOTE | 2023-01-14 12:49 | NUR ---
Dialysis Nurse Notes: Dialysis completed. 2.5 hours long, 1500 mL removed. Patient stable at this time, no shortness of breath, no pain, no discomfort. Patient resting quietly in bed. Lunch provided.
--- NOTE | 2023-01-14 14:20 | NUR ---
MRS GUIDO WILL BE PICKED UP AROUND 4PM [facility] WILL BE PICKING HER UP
[2023-01-14 15:14] VITALS: BP_SYST 150
--- NOTE | 2023-01-14 16:00 | NUR ---
Late Afternoon Nurse Notes: Patient stable, breathing even and unlabored on room air. No pain, no distress, no SOB. Bed is locked in lowest position. Call light within reach, all needs met, awaiting discharge finalization and parts picker now.
[2023-01-14 16:02] VITALS: BP_SYST 150
--- NOTE | 2023-01-14 16:20 | NUR ---
D/C Patient Transport company given medication reconciliation form and D/C instructions inside packet. Exit Care provided. Patient verbalized understanding. MD discussed with patient the results and treatment provided. Non-ambulatory, pt taken by janett. Patient in stable condition, ID band removed. IV catheter removed, intact and dressing applied, no active bleeding. Patient educated on dialysis management. All belongings sent with patient.
== END 2023-01-14 16:45 | DRG 698 ==
LOC: SED 20:42 → STU 22:41
PROVIDERS: ADMIT General Practice; ATTEND General Practice
PROC: 5A1D70Z Performance of Urinary Filtration, Intermittent, Less than 6 Hours Per Day (ICD-10-PCS; principal; 2023-01-11)
PROC: 5A1D70Z Performance of Urinary Filtration, Intermittent, Less than 6 Hours Per Day (ICD-10-PCS; 2023-01-14)
DX: T82.41XA Breakdown (mechanical) of vascular dialysis catheter, initial encounter (principal); G93.41 Metabolic encephalopathy; N17.0 Acute kidney failure with tubular necrosis; N18.6 End stage renal disease; I69.359 Hemiplegia and hemiparesis following cerebral infarction affecting unspecified side; I12.0 Hypertensive chronic kidney disease with stage 5 chronic kidney disease or end stage renal disease; E87.5 Hyperkalemia; G30.9 Alzheimer's disease, unspecified; Z53.9 Procedure and treatment not carried out, unspecified reason; Y83.8 Other surgical procedures as the cause of abnormal reaction of the patient, or of later complication, without mention of misadventure at the time of the procedure; F02.80 Dementia in other diseases classified elsewhere, unspecified severity, without behavioral disturbance, psychotic disturbance, mood disturbance, and anxiety; G40.909 Epilepsy, unspecified, not intractable, without status epilepticus; F29 Unspecified psychosis not due to a substance or known physiological condition; E11.22 Type 2 diabetes mellitus with diabetic chronic kidney disease; Z93.1 Gastrostomy status; Y92.89 Other specified places as the place of occurrence of the external cause; Z93.6 Other artificial openings of urinary tract status
CPT/HCPCS: 36415; 71045; 80048; 80053; 83037; 83735; 85025; 87081; 87101; 90935; 90937; 93005; 94640; 96374; 96375; 99285; G0378; J1644; J1815; J2997; J7613

== ENCOUNTER 2023-05-02 17:27 | Emergency (ER) | payer OTHER, MEDICAID ==
[~2023-05-02] VITALS: Ht 170.2 cm; Wt 65.8 kg
[~2023-05-02 17:27] MED LIST: ACET325T PO; CLON0.1T PO; DEXT50DI5 IV; GLUC1VIA14 IM; INSU100V7 SUBCUT; SER25 PO
[2023-05-02 17:39] VITALS: BP_SYST 152; PULSE 57; RESP 22; TEMP 98.3; O2SAT 100
[2023-05-02] MEDS ORDERED: cefTRIAXone 1 GM IVPB PREMIX 50 ML IV ONE (17:45)
[2023-05-02 21:10] VITALS: BP_SYST 152; PULSE 57; RESP 22; TEMP 98.3; O2SAT 100
== END 2023-05-02 20:20 | disposition left against medical advice (07) ==
LOC: SED 17:27
DX: R53.1 Weakness (principal); R41.0 Disorientation, unspecified; E11.9 Type 2 diabetes mellitus without complications; I10 Essential (primary) hypertension; Z79.4 Long term (current) use of insulin; Z79.899 Other long term (current) drug therapy
CPT/HCPCS: 99283

== ENCOUNTER 2023-05-19 10:45 | Inpatient (IN) | payer OTHER, MEDICAID ==
[~2023-05-19] VITALS: Ht 157.5 cm; Wt 68.0 kg
[2023-05-19 10:45] VITALS: BP_SYST 148; PULSE 62; RESP 17; TEMP 97.6; O2SAT 97
[2023-05-19 13:45] LABS: BILIRUBIN,URINE NEGATIVE (NEGATIVE); BLOOD, URINE 1+ (NEGATIVE); CLARITY/URINE CLOUDY (CLEAR); GLUCOSE,URINE TRACE (NEGATIVE); KETONES,URINE NEGATIVE (NEGATIVE); LEUKOCYTE ESTERASE ,URINE 3+ (NEGATIVE); NITRITE, URINE NEGATIVE (NEGATIVE); PH,URINE 7.5 (5.0-8.0); PROTEIN URINE 2+ (NEGATIVE); UROBILINOGEN,URINE 0.2 (0.2-1.0)
[2023-05-19 13:47] LABS: COLOR,URINE STRAW (YELLOW)
[2023-05-19 13:55] LABS: BACTERIA,URINE MANY /HPF (None Seen); WBC,URINE >100 /HPF (0-3)
[2023-05-19 22:46] LABS: BASOPHILS % (AUTO) 0.2 % (0.0-2.0); EOSINOPHILS # (AUTO) 0.2 K/uL (0.0-0.4); EOSINOPHILS % (AUTO) 4.1 % (0.0-4.0); HEMATOCRIT 29.6 % (36-48); HEMOGLOBIN 9.6 g/dL (12.0-16.0); LYMPHOCYTES # (AUTO) 1.4 K/uL (1.0-5.5); LYMPHOCYTES % (AUTO) 24.9 % (20.5-51.5); MEAN CORPUSCULAR HEMOGLOBIN 31 pg (27-31); MEAN CORPUSCULAR HGB CONC 32 % (32-36); MEAN CORPUSCULAR VOLUME 96 fL (79.0-98.0); MONOCYTES # (AUTO) 0.6 K/uL (0.0-1.0); MONOCYTES % (AUTO) 10.8 % (1.7-9.3); NEUTROPHILS # (AUTO) 3.4 K/uL (1.8-7.7); PLATELET COUNT (AUTO) 233 K/uL (130-430); RED BLOOD CELL COUNT(AUTO) 3.07 MIL/uL (4.2-6.2); RED CELL DISTRIBUTION WIDTH 15.9 % (9.0-15.0); WHITE BLOOD COUNT (AUTO) 5.7 K/uL (4.8-10.8)
[2023-05-19 23:01] LABS: ANION GAP 8 (5-15); CALCIUM 9.6 mg/dL (8.4-11.0); CARBON DIOXIDE 29 mmol/L (23-29); CHLORIDE 103 mmol/L (98-107); CREATININE 5.13 mg/dL (0.55-1.30); GFR AFRICAN AMERICAN 11 mL/min (>90); GLUCOSE 178 mg/dL (74-106); POTASSIUM 4.4 mmol/L (3.5-5.1); SODIUM SERUM 140 mmol/L (136-145); UREA NITROGEN, BLOOD 23 mg/dL (8-21)
[2023-05-19 23:07] LABS: ALANINE AMINOTRANSFERASE 16 U/L (12-78); ALBUMIN 3.1 g/dL (3.4-4.8); ASPARTATE AMINOTRANSFERASE 26 U/L (10-37); TOTAL BILIRUBIN 0.4 mg/dL (0.0-1.0); TOTAL PROTEIN, SERUM 6.7 g/dL (6.4-8.3)
[2023-05-19 23:10] LABS: GFR NON AFRICAN-AMERICAN 9 mL/min (>90)
[2023-05-20] MEDS ORDERED: MORPHINE 4 MG INJ. 4 MG/ML VIAL IVP ONE (05:30)
[2023-05-20 09:00] VITALS: BP_SYST 152; PULSE 55; RESP 18; TEMP 99; O2SAT 96
[2023-05-20] MEDS ORDERED: cefTRIAXone 1 GM in D5W 50 ML IV SCH (09:00)
[2023-05-20] MEDS: CEFTRIAXONE SOD 1 GM/ D5W 50 ML IV SCH ×2 (11:09)
[2023-05-20] MEDS ORDERED: ACETAMINOPHEN 325 MG TABLET PO PRN (13:30)
[2023-05-20] MEDS ORDERED: cloNIDine HCL 0.1 MG TABLET PO PRN (13:30)
[2023-05-20 16:00] VITALS: BP_SYST 148; PULSE 54; RESP 18; TEMP 98.6; O2SAT 97
[2023-05-20 20:00] VITALS: BP_SYST 157; PULSE 56; RESP 18; TEMP 98; O2SAT 97
[2023-05-20] MEDS: QUEtiapine FUMARATE 25 MG TABLET PO SCH (20:16)
[2023-05-21] VITALS (7 sets, daily range): BP systolic 110–132; PULSE 15–68; RESP 15–57; TEMP 96.3–98.6; O2SAT 96–100
[2023-05-21 05:09] LABS: BASOPHILS # (AUTO) 0.1 K/uL (0.0-0.2); BASOPHILS % (AUTO) 1.3 % (0.0-2.0); EOSINOPHILS # (AUTO) 0.2 K/uL (0.0-0.4); EOSINOPHILS % (AUTO) 5.2 % (0.0-4.0); LYMPHOCYTES # (AUTO) 1.3 K/uL (1.0-5.5); LYMPHOCYTES % (AUTO) 26.9 % (20.5-51.5); MEAN CORPUSCULAR HEMOGLOBIN 31 pg (27-31); MEAN CORPUSCULAR HGB CONC 32 % (32-36); MEAN CORPUSCULAR VOLUME 97 fL (79.0-98.0); MONOCYTES # (AUTO) 0.6 K/uL (0.0-1.0); MONOCYTES % (AUTO) 12.2 % (1.7-9.3); NEUTROPHILS # (AUTO) 2.6 K/uL (1.8-7.7); NEUTROPHILS % (AUTO) 54.4 % (40.0-70.0); PLATELET COUNT (AUTO) 232 K/uL (130-430); RED BLOOD CELL COUNT(AUTO) 2.87 MIL/uL (4.2-6.2); RED CELL DISTRIBUTION WIDTH 16.7 % (9.0-15.0); WHITE BLOOD COUNT (AUTO) 4.8 K/uL (4.8-10.8)
[2023-05-21 05:40] LABS: CALCIUM 9.2 mg/dL (8.4-11.0); CREATININE 7.02 mg/dL (0.55-1.30); PHOSPHORUS 4.2 mg/dL (2.7-4.5); POTASSIUM 4.3 mmol/L (3.5-5.1)
[2023-05-21] MEDS: QUEtiapine FUMARATE 25 MG TABLET PO SCH ×2 (08:32→21:00)
[2023-05-21] MEDS: CEFTRIAXONE SOD 1 GM/ D5W 50 ML IV SCH ×2 (11:42)
[2023-05-21] MEDS: EPOETIN ALFA 20,000 UNITS/ML VIAL SUBCUT SCH (16:25)
[2023-05-21] MEDS ORDERED: HEPARIN SODIUM,PORCINE 5,000 UNITS/ML VIAL MC ONE (17:30)
[2023-05-22] VITALS (8 sets, daily range): BP systolic 113–125; PULSE 60–83; RESP 16–20; TEMP 96.5–97.8; O2SAT 97–100
[2023-05-22] MEDS: QUEtiapine FUMARATE 25 MG TABLET PO SCH ×2 (08:47→21:01)
[2023-05-22] MEDS: CEFTRIAXONE SOD 1 GM/ D5W 50 ML IV SCH ×2 (11:28)
[2023-05-23 01:44] VITALS: BP_SYST 130; PULSE 74; RESP 18; TEMP 98.3; O2SAT 98
[2023-05-23] MEDS: QUEtiapine FUMARATE 25 MG TABLET PO SCH ×2 (08:02→20:14)
[2023-05-23 08:03] VITALS: BP_SYST 120; PULSE 56; RESP 18; TEMP 98.1; O2SAT 98
[2023-05-23] MEDS ORDERED: DOXY-244 PO (11:29)
[2023-05-23] MEDS ORDERED: DOXYCYCLINE HYCLATE 100 MG CAPSULE PO ONE (12:00)
[2023-05-23 12:30] VITALS: BP_SYST 125; PULSE 63; RESP 19; TEMP 98.7; O2SAT 98
[2023-05-23] MEDS ORDERED: HEPARIN SODIUM,PORCINE 5,000 UNITS/ML VIAL MC ONE (13:30)
[2023-05-23 14:06] VITALS: BP_SYST 112; PULSE 64; RESP 18; TEMP 98.6; O2SAT 94
[2023-05-23 16:21] VITALS: BP_SYST 123; PULSE 60; RESP 18; TEMP 98.2; O2SAT 99
[2023-05-23] MEDS: EPOETIN ALFA 20,000 UNITS/ML VIAL SUBCUT SCH (17:14)
[2023-05-23 20:20] VITALS: BP_SYST 120; PULSE 62; RESP 20; TEMP 98.2; O2SAT 97
[2023-05-23] MEDS ORDERED: DOXYCYCLINE HYCLATE 100 MG CAPSULE PO SCH (21:00)
== END 2023-05-23 20:53 | DRG 682 ==
LOC: SED 10:45 → SMU 05-20 01:25
PROVIDERS: ADMIT Internal Medicine; ATTEND Internal Medicine
PROC: 5A1D70Z Performance of Urinary Filtration, Intermittent, Less than 6 Hours Per Day (ICD-10-PCS; principal; 2023-05-21)
PROC: 5A1D70Z Performance of Urinary Filtration, Intermittent, Less than 6 Hours Per Day (ICD-10-PCS; 2023-05-23)
DX: I12.0 Hypertensive chronic kidney disease with stage 5 chronic kidney disease or end stage renal disease (principal); G93.41 Metabolic encephalopathy; N18.6 End stage renal disease; N39.0 Urinary tract infection, site not specified; E44.0 Moderate protein-calorie malnutrition; R00.1 Bradycardia, unspecified; D63.1 Anemia in chronic kidney disease; E11.22 Type 2 diabetes mellitus with diabetic chronic kidney disease; F41.9 Anxiety disorder, unspecified; E78.5 Hyperlipidemia, unspecified; F29 Unspecified psychosis not due to a substance or known physiological condition; E66.9 Obesity, unspecified; M47.812 Spondylosis without myelopathy or radiculopathy, cervical region; G40.909 Epilepsy, unspecified, not intractable, without status epilepticus; Z99.2 Dependence on renal dialysis; Z79.4 Long term (current) use of insulin; Z68.27 Body mass index [BMI] 27.0-27.9, adult; B96.1 Klebsiella pneumoniae [K. pneumoniae] as the cause of diseases classified elsewhere
CPT/HCPCS: 36415; 70450-TC; 71045; 72125-TC; 73552; 73700-TC; 76376; 76770; 80048; 80053; 81000; 81001; 81015; 82962; 83735; 83880; 84100; 84484; 85025; 87081; 87086; 90935; 90937; 93005; 97110-GP; 97530-GP; 99285; J0696; J0885; J1644; J2270; J7060

== ENCOUNTER 2023-08-15 18:27 | Inpatient (IN) | payer OTHER ==
[~2023-08-15] VITALS: Ht 167.6 cm; Wt 81.6 kg
[~2023-08-15 18:27] MED LIST changes: +DOXY-244 PO
[2023-08-15 18:35] VITALS: BP_SYST 163; PULSE 56; RESP 20; TEMP 98.2; O2SAT 96
[2023-08-15] MEDS: ALTEPLASE 2 MG VIAL MC ONE ×2 (19:30→22:49)
[2023-08-15 20:18] LABS: BASOPHILS % (AUTO) 0.2 % (0.0-2.0); EOSINOPHILS # (AUTO) 0.2 K/uL (0.0-0.4); EOSINOPHILS % (AUTO) 3.7 % (0.0-4.0); HEMATOCRIT 36.3 % (36-48); HEMOGLOBIN 12.2 g/dL (12.0-16.0); LYMPHOCYTES # (AUTO) 1.9 K/uL (1.0-5.5); MEAN CORPUSCULAR HEMOGLOBIN 31 pg (27-31); MEAN CORPUSCULAR HGB CONC 34 % (32-36); MEAN CORPUSCULAR VOLUME 91 fL (79.0-98.0); MONOCYTES # (AUTO) 0.5 K/uL (0.0-1.0); MONOCYTES % (AUTO) 8.8 % (1.7-9.3); NEUTROPHILS # (AUTO) 2.9 K/uL (1.8-7.7); NEUTROPHILS % (AUTO) 53.3 % (40.0-70.0); PLATELET COUNT (AUTO) 178 K/uL (130-430); RED BLOOD CELL COUNT(AUTO) 3.99 MIL/uL (4.2-6.2); RED CELL DISTRIBUTION WIDTH 15.1 % (9.0-15.0); WHITE BLOOD COUNT (AUTO) 5.5 K/uL (4.8-10.8)
[2023-08-15 20:36] LABS: CALCIUM 9.4 mg/dL (8.4-11.0)
[2023-08-15 20:40] LABS: POTASSIUM 6.4 mmol/L (3.5-5.1)
[2023-08-15 20:41] LABS: CREATININE 9.78 mg/dL (0.55-1.30)
[2023-08-15] MEDS ORDERED: ALTEPLASE 2 MG VIAL MC ONE (21:39)
[2023-08-15] MEDS ORDERED: hydrALAZINE HCL 25 MG TABLET PO PRN (22:45)
[2023-08-15] MEDS ORDERED: INSULIN LISPRO SLIDING SCALE 100 UNITS/ML, 3 ML VIAL (humaLOG) SUBCUT PRN (22:45)
[2023-08-15] MEDS ORDERED: LORazepam 2 MG/ML VIAL IVP PRN ×2 (22:45→23:00)
[2023-08-15] MEDS ORDERED: DEXTROSE 50% JECT 50 ML DISP.SYRIN IVP PRN (22:45)
[2023-08-15] MEDS ORDERED: SODIUM POLYSTYRENE SULFONATE 15 GM/60 ML UDBTL PO ONE (22:45)
[2023-08-15] MEDS ORDERED: cloNIDine HCL 0.2 MG TABLET PO PRN (22:45)
[2023-08-15] MEDS ORDERED: ONDANSETRON HCL 4 MG/2 ML VIAL IVP PRN (23:00)
[2023-08-15] MEDS ORDERED: OLANZapine IntraMuscular 10 MG VIAL (FOR I.M. INJECTION ONLY) IM ONE (23:00)
[2023-08-15] MEDS ORDERED: HALOPERIDOL LACTATE 5 MG/ML VIAL IM ONE (23:00)
[2023-08-15] MEDS ORDERED: HALOPERIDOL LACTATE 5 MG/ML VIAL ONE (23:00)
[2023-08-15] MEDS ORDERED: LORazepam 2 MG/ML VIAL ONE (23:02)
[2023-08-15] MEDS ORDERED: ACETAMINOPHEN 325 MG TABLET PO PRN (23:15)
[2023-08-15] MEDS ORDERED: LORazepam 2 MG/ML VIAL IVP ONE (23:15)
[2023-08-15] MEDS ORDERED: HYDROcodone/ACETAMIN 5-325 MG TAB (NORCO/ VICODIN) PO PRN (23:15)
[2023-08-16] MEDS ORDERED: INSULIN REGULAR, HUMAN 100 UNITS/ML, 3 ML VIAL IVP ONE (00:15)
[2023-08-16] MEDS ORDERED: DEXTROSE 50% JECT 50 ML DISP.SYRIN IVP ONE (00:15)
[2023-08-16] MEDS ORDERED: SODIUM BICARBONATE 8.4% JECT 50 MEQ/50 ML SYRINGE IVP ONE (00:15)
[2023-08-16] MEDS ORDERED: CALCIUM CHLORIDE 1 GM/10ML VIAL (13.6 mEq Ca++/VIAL) IV ONE (00:15)
[2023-08-16] MEDS ORDERED: CALCIUM CHLORIDE 1 GM/10 ML DISP.SYRIN (14 mEq Ca++/SYR) ONE (00:38)
[2023-08-16] MEDS ORDERED: CLON0.1T PO (05:36)
[2023-08-16] MEDS ORDERED: CALC667T6 PO (05:36)
[2023-08-16 05:38] LABS: EOSINOPHILS # (AUTO) 0.2 K/uL (0.0-0.4); EOSINOPHILS % (AUTO) 3.4 % (0.0-4.0); HEMATOCRIT 33.5 % (36-48); HEMOGLOBIN 11.4 g/dL (12.0-16.0); LYMPHOCYTES # (AUTO) 1.6 K/uL (1.0-5.5); LYMPHOCYTES % (AUTO) 30.6 % (20.5-51.5); MEAN CORPUSCULAR HEMOGLOBIN 31 pg (27-31); MEAN CORPUSCULAR HGB CONC 34 % (32-36); MEAN CORPUSCULAR VOLUME 90 fL (79.0-98.0); MONOCYTES # (AUTO) 0.4 K/uL (0.0-1.0); MONOCYTES % (AUTO) 7.3 % (1.7-9.3); NEUTROPHILS % (AUTO) 57.7 % (40.0-70.0); PLATELET COUNT (AUTO) 172 K/uL (130-430); RED BLOOD CELL COUNT(AUTO) 3.72 MIL/uL (4.2-6.2); RED CELL DISTRIBUTION WIDTH 14.8 % (9.0-15.0); WHITE BLOOD COUNT (AUTO) 5.2 K/uL (4.8-10.8)
[2023-08-16 05:43] LABS: ALBUMIN 3.1 g/dL (3.4-4.8); CALCIUM 10.5 mg/dL (8.4-11.0); POTASSIUM 5.2 mmol/L (3.5-5.1); TOTAL BILIRUBIN 0.4 mg/dL (0.0-1.0); TOTAL PROTEIN, SERUM 6.4 g/dL (6.4-8.3)
[2023-08-16 06:27] LABS: CREATININE 9.8 mg/dL (0.55-1.30)
[2023-08-16] MEDS ORDERED: QUEtiapine FUMARATE 25 MG TABLET PO SCH (09:00)
[2023-08-16 14:38] VITALS: BP_SYST 154; PULSE 54; RESP 18; TEMP 98.2; O2SAT 98
[2023-08-16 15:02] VITALS: BP_SYST 154; PULSE 54; RESP 18; TEMP 97.4; O2SAT 98
== END 2023-08-16 14:30 | DRG 640 ==
LOC: SED 18:27 → STU 22:41
PROVIDERS: ADMIT Internal Medicine; ATTEND Internal Medicine
PROC: 5A1D70Z Performance of Urinary Filtration, Intermittent, Less than 6 Hours Per Day (ICD-10-PCS; principal; 2023-08-15)
DX: E87.5 Hyperkalemia (principal); N18.6 End stage renal disease; T82.49XA Other complication of vascular dialysis catheter, initial encounter; I12.0 Hypertensive chronic kidney disease with stage 5 chronic kidney disease or end stage renal disease; E11.22 Type 2 diabetes mellitus with diabetic chronic kidney disease; G40.909 Epilepsy, unspecified, not intractable, without status epilepticus; F41.9 Anxiety disorder, unspecified; X58.XXXA Exposure to other specified factors, initial encounter; Z20.822 Contact with and (suspected) exposure to COVID-19
CPT/HCPCS: 36415; 71045; 80048; 80053; 82962; 85025; 87081; 90935; 93005; 96372; 99285; G0378; J1630; J1815; J2060; J2997; J3490

== ENCOUNTER 2023-10-06 11:36 | Observation (INO) | payer OTHER ==
[~2023-10-06] VITALS: Ht 160 cm; Wt 63.5 kg
[2023-10-06 11:36] VITALS: BP_SYST 128; PULSE 89; RESP 17; TEMP 97.6; O2SAT 97
[~2023-10-06 11:36] MED LIST changes: +ACET325T GT; -ACET325T PO; +CALC667T6 GT; -DOXY-244 PO
[2023-10-06] MEDS ORDERED: LACT1TAB14 GT (12:17)
[2023-10-06] MEDS ORDERED: MUPI15CR12 TP (12:17)
[2023-10-06] MEDS ORDERED: SSNOVOLOG SUBCUT (12:17)
[2023-10-06] MEDS ORDERED: FAMO20TA8 GT (12:17)
[2023-10-06] MEDS ORDERED: HEPA500015 SUBCUT (12:17)
[2023-10-06] MEDS ORDERED: ACET325T GT (12:17)
[2023-10-06] MEDS ORDERED: RISP0.5T5 GT (12:17)
[2023-10-06] MEDS ORDERED: LORA-258 IM (12:17)
[2023-10-06 12:19] LABS: BASOPHILS # (AUTO) 0.1 K/uL (0.0-0.2); BASOPHILS % (AUTO) 1.9 % (0.0-2.0); EOSINOPHILS # (AUTO) 0.5 K/uL (0.0-0.4); EOSINOPHILS % (AUTO) 7.7 % (0.0-4.0); HEMATOCRIT 27.3 % (36-48); HEMOGLOBIN 9.1 g/dL (12.0-16.0); LYMPHOCYTES # (AUTO) 1.6 K/uL (1.0-5.5); LYMPHOCYTES % (AUTO) 26.3 % (20.5-51.5); MEAN CORPUSCULAR HEMOGLOBIN 32 pg (27-31); MEAN CORPUSCULAR HGB CONC 33 % (32-36); MEAN CORPUSCULAR VOLUME 94 fL (79.0-98.0); MONOCYTES # (AUTO) 0.5 K/uL (0.0-1.0); MONOCYTES % (AUTO) 9.3 % (1.7-9.3); NEUTROPHILS # (AUTO) 3.2 K/uL (1.8-7.7); NEUTROPHILS % (AUTO) 54.8 % (40.0-70.0); PLATELET COUNT (AUTO) 209 K/uL (130-430); RED CELL DISTRIBUTION WIDTH 15.1 % (9.0-15.0); WHITE BLOOD COUNT (AUTO) 5.9 K/uL (4.8-10.8)
[2023-10-06 12:32] LABS: PROTHROMBIN TIME 10.1 SECS (9.5-12.5)
[2023-10-06 12:37] LABS: ANION GAP 13 (5-15); CARBON DIOXIDE 23 mmol/L (23-29); CHLORIDE 103 mmol/L (98-107); GFR AFRICAN AMERICAN 5 mL/min (>90); GLUCOSE 108 mg/dL (74-106); POTASSIUM 5.4 mmol/L (3.5-5.1); SODIUM SERUM 139 mmol/L (136-145); UREA NITROGEN, BLOOD 60 mg/dL (8-21)
[2023-10-06] MEDS ORDERED: SODIUM POLYSTYRENE SULFONATE 15 GM/60 ML UDBTL ONE (12:39)
[2023-10-06 12:41] LABS: GFR NON AFRICAN-AMERICAN 4 mL/min (>90)
[2023-10-06 12:42] LABS: CREATININE 9.57 mg/dL (0.55-1.30)
[2023-10-06] MEDS: ALTEPLASE 2 MG VIAL MC ONE ×2 (13:00→17:06)
[2023-10-06] MEDS: SODIUM POLYSTYRENE SULFONATE 15 GM/60 ML UDBTL GT ONE (14:34)
[2023-10-06 16:22] VITALS: BP_SYST 159; PULSE 50; RESP 18; TEMP 97.7
[2023-10-06] MEDS ORDERED: ACETAMINOPHEN 325 MG TABLET GT PRN ×2 (17:45)
[2023-10-06] MEDS ORDERED: DEXTROSE 50% JECT 50 ML DISP.SYRIN IVP PRN (17:45)
[2023-10-06] MEDS ORDERED: DEXTROSE 50% JECT 50 ML DISP.SYRIN IV PRN (17:45)
[2023-10-06] MEDS ORDERED: GLUCOSE (DEXTROSE) ORAL GEL -Adults PO PRN (17:45)
[2023-10-06] MEDS ORDERED: D5W 1,000 ML IV PRN (17:45)
[2023-10-06 20:00] VITALS: BP_SYST 150; PULSE 60; RESP 18; TEMP 100; O2SAT 100
[2023-10-06] MEDS: HEPARIN SODIUM,PORCINE 5,000 UNITS/ML VIAL SUBCUT SCH (21:00)
[2023-10-06] MEDS: INSULIN LISPRO SLIDING SCALE 100 UNITS/ML, 3 ML VIAL (humaLOG) SUBCUT PRN (21:29)
[2023-10-07 00:04] VITALS: BP_SYST 139; PULSE 53; RESP 15; TEMP 96.6; O2SAT 98
[2023-10-07 08:00] VITALS: BP_SYST 130; PULSE 60; RESP 18; TEMP 96.8; O2SAT 99
[2023-10-07] MEDS: FAMOTIDINE 20 MG TABLET GT SCH (10:25)
[2023-10-07 11:13] VITALS: BP_SYST 103; BP_SYST 127; PULSE 55; PULSE 58; RESP 14; RESP 18; TEMP 97.2; TEMP 97.3; O2SAT 93; O2SAT 99
== END 2023-10-07 13:40 ==
LOC: SED 11:36 → INTOOBSV 12:54 → STU 12:54
PROVIDERS: ADMIT Internal Medicine; ATTEND Internal Medicine
DX: T82.41XA Breakdown (mechanical) of vascular dialysis catheter, initial encounter (principal); I12.0 Hypertensive chronic kidney disease with stage 5 chronic kidney disease or end stage renal disease; E11.22 Type 2 diabetes mellitus with diabetic chronic kidney disease; N18.6 End stage renal disease; E87.5 Hyperkalemia; F03.90 Unspecified dementia, unspecified severity, without behavioral disturbance, psychotic disturbance, mood disturbance, and anxiety; Z79.899 Other long term (current) drug therapy; Z99.2 Dependence on renal dialysis
CPT/HCPCS: 80048; 85025; 85610; 85730; 87081; 84484; 36415; 93005; 71045; 99285; 82948; 96372; J2997; G0378 ×2; J1644; 90935; 90937